=== PATIENT | male | born 1990 | race Caucasian/White ===

== ENCOUNTER 2023-12-18 07:17 | Emergency (ER) | payer OTHER ==
[2023-12-18] MEDS: SODIUM CHLORIDE 0.9% 1,000 ML IV ONE (08:31)
[2023-12-18] MEDS: SODIUM CHLORIDE 0.9% 500 ML 500 ML IV ONE (08:32)
[2023-12-18] MEDS: METOCLOPRAMIDE 5 MG/ML 2 ML VIAL IVP STA ×2 (08:33)
--- NOTE | 2023-12-18 08:42 | ED ---
General Adult HPI - General Chief complaint: Nausea/Vomiting/Diarrhea Stated complaint: Detox Time Seen by Provider: 12/18/23 07:35 Source: patient, EMS, RN notes reviewed, old records reviewed Mode of arrival: EMS Limitations: no limitations - History of Present Illness Initial comments: This is a 33-year-old male who presents to the emergency department from [facility]. Patient came in yesterday for fentanyl abuse. Patient was started on methadone. Patient states last night he started vomiting and has been unable to stop vomiting since so they sent him to the emergency department. Patient states he has some abdominal cramping but no severe point tenderness. Patient [place] any fever or chills. Patient has any diarrhea. Patient denies chest pain or shortness of breath. Patient's only complaint is that he cannot stop vomiting. - Related Data Home Medications Medication Instructions Recorded Confirmed Melatonin 10 mg PO HS 12/18/23 12/18/23 Methadone HCl 90 mg PO DAILY 12/18/23 12/18/23 Zofran 2ml(4mg) 4 mg IM Q6H PRN 12/18/23 12/18/23 cloNIDine HCL [Catapres] 0.1 mg PO Q4H PRN 12/18/23 12/18/23 ondansetron HCL [Ondansetron HCl] 8 mg PO Q6H PRN 12/18/23 12/18/23 traZODone HCL [Desyrel] 50 - 150 mg PO HS PRN 12/18/23 12/18/23 Allergies Allergy/AdvReac Type Severity Reaction Status Date / Time cephalexin [From Keflex] AdvReac Rash/Hives Verified 12/18/23 09:38 Review of Systems ROS Statement: Those systems with pertinent positive or pertinent negative responses have been documented in the HPI. ROS Other: All systems not noted in ROS Statement are negative. Past Medical History Past Medical History: No Reported History Past Surgical History: Appendectomy, Hernia Repair Smoking Status: Current every day smoker Past Alcohol Use History: None Reported Past Drug Use History: IV Drug Use General Exam - General Exam Comments Initial Comments: GENERAL: Patient is well-developed and well-nourished. Patient is nontoxic and well- hydrated and is in mild distress. ENT: Neck is soft and supple. No significant lymphadenopathy is noted. Oropharynx is clear. Moist mucous membranes. Neck has full range of motion without eliciting any pain. EYES: The sclera were anicteric and conjunctiva were pink and moist. Extraocular movements were intact and pupils were equal round and reactive to light. Eyelids were unremarkable. PULMONARY: Unlabored respirations. Good breath sounds bilaterally. No audible rales rhonchi or wheezing was noted. CARDIOVASCULAR: There is a regular rate and rhythm without any murmurs gallops or rubs. ABDOMEN: Soft and nontender with normal bowel sounds. No palpable organomegaly was noted. There is no palpable pulsatile mass. SKIN: Skin is clear with no lesions or rashes and otherwise unremarkable. NEUROLOGIC: Patient is alert and oriented x3. Cranial nerves II through XII are grossly intact. Motor and sensory are also intact. Normal speech, volume and content. Symmetrical smile. MUSCULOSKELETAL: Normal extremities with adequate strength and full range of motion. No lower extremity swelling or edema. No calf tenderness. LYMPHATICS: No significant lymphadenopathy is noted PSYCHIATRIC: Normal psychiatric evaluation. Limitations: no limitations Course Vital Signs 12/18/23 12/18/23 07:19 09:52 Temperature 99.3 F Pulse Rate 64 81 Respiratory 18 16 Rate Blood Pressure 138/83 122/61 O2 Sat by Pulse 99 99 Oximetry Medical Decision Making - Medical Decision Making EKG is interpreted by myself but EKG shows a sinus rhythm at 68 bpm parable 158 QRS is 100 QT interval is 428 QTc is 445. Patient's EKG shows no ST segment ovation or depression Was pt. sent in by a medical professional or institution ([facility], [facility], urgent care, hospital, or assisted...) When possible be specific @ -Patient was sent to us by [facility] Did you speak to anyone other than the patient for history (EMS, parent, family, police, friend...)? What history was obtained from this source @ -No Did you review nursing and triage notes (agree or disagree)? Why? @ -I reviewed and agree with nursing and triage notes Were old charts reviewed (outside hosp., previous admission, EMS record, old EKG, old radiological studies, urgent care reports/EKG's, assisted records)? Report findings @ -No old charts were reviewed Differential Diagnosis (chest pain, altered mental status, abdominal pain women, abdominal pain men, vaginal bleeding, weakness, fever, dyspnea, syncope, headache, dizziness, GI bleed, back pain, seizure, CVA, palpatations, mental health, musculoskeletal)? @ -Gastroenteritis, acute vomiting viral, narcotics withdrawal, this is not an all-inclusive list EKG interpreted by me (3pts min.). @ -As above X-rays interpreted by me (1pt min.). @ -None done CT interpreted by me (1pt min.). @ -None done U/S interpreted by me (1pt. min.). @ -None done What testing was considered but not performed or refused? (CT, X-rays, U/S, labs)? Why? @ -None What meds were considered but not given or refused? Why? @ -None Did you discuss the management of the patient with other professionals (professionals i.e. , PA, [facility] [facility], lab, RT, psych nurse, social insurance specialist, office machines sales representative, teacher, parole or probation officer, manager of case management)? Give summary @ -No Was smoking cessation discussed for >3mins.? @ -No Was critical care preformed (if so, how long)? @ -No Were there social determinants of health that impacted care today? How? (Homelessness, low income, unemployed, alcoholism, drug addiction, transportation, low edu. Level, literacy, decrease access to med. care, shelter, rehab)? @ -No Was there de-escalation of care discussed even if they declined (Discuss DNR or withdrawal of care, Hospice)? DNR status @ -No What co-morbidities impacted this encounter? (DM, HTN, Smoking, COPD, CAD, Cancer, CVA, ARF, Chemo, Hep., AIDS, mental health diagnosis, sleep apnea, morbid obesity)? @ -None Was patient admitted / discharged? Hospital course, mention meds given and route, prescriptions, significant lab abnormalities, going to OR and other pertinent info. @ -Patient was in the emergency department given Zofran and Reglan initially it decrease the nausea little but the patient did eventually continue to vomit the patient was given droperidol and he felt considerably better he was given a liter half of fluid and at this point time he had no abdominal pain no nausea and he was sleeping comfortably. I will transfer the patient back to [facility] patient is in agreement with this. Patient was also given methadone because it was due at the rehabilitation center at 9:00. Undiagnosed new problem with uncertain prognosis? @ -No Drug Therapy requiring intensive monitoring for toxicity (Heparin, Nitro, Insulin, Cardizem)? @ -No Were any procedures done? @ -No Diagnosis/symptom? @ -Narcotics withdrawal Acute, or Chronic, or Acute on Chronic? @ -Acute Uncomplicated (without systemic symptoms) or Complicated (systemic symptoms)? @ -Complicated Side effects of treatment? @ -No Exacerbation, Progression, or Severe Exacerbation? @ -No Poses a threat to life or bodily function? How? (Chest pain, [place], [place], pneumonia, PE, COPD, DKA, ARF, appy, cholecystitis, CVA, Diverticulitis, Homicidal, Suicidal, threat to staff... and all critical care pts) @ -No - Lab Data Result diagrams: 12/18/23 14:18 12/18/23 08:36 Lab Results 12/18/23 12/18/23 12/18/23 Range/Units 08:36 08:36 14:18 WBC 22.0 H 17.2 H (3.8-10.6) k/uL RBC 5.18 5.05 (4.30-5.90) m/uL Hgb 14.4 14.1 (13.0-17.5) gm/dL Hct 43.2 42.0 (39.0-53.0) % MCV 83.4 83.2 (80.0-100.0) fL MCH 27.8 27.9 (25.0-35.0) pg MCHC 33.4 33.5 (31.0-37.0) g/dL RDW 12.6 12.5 (11.5-15.5) % Plt Count 192 190 (150-450) k/uL MPV 9.1 9.2 Neutrophils % 90 90 % Lymphocytes % 5 6 % Monocytes % 5 3 % Eosinophils % 0 1 % Basophils % 0 0 % Neutrophils # 19.7 H 15.5 H (1.3-7.7) k/uL Lymphocytes # 1.0 1.0 (1.0-4.8) k/uL Monocytes # 1.1 H 0.6 (0-1.0) k/uL Eosinophils # 0.0 0.1 (0-0.7) k/uL Basophils # 0.0 0.0 (0-0.2) k/uL Sodium 142 (137-145) mmol/L Potassium 3.7 (3.5-5.1) mmol/L Chloride 105 (98-107) mmol/L Carbon Dioxide 28 (22-30) mmol/L Anion Gap 9 mmol/L BUN 9 (9-20) mg/dL Creatinine 0.85 (0.66-1.25) mg/dL Est GFR (CKD-EPI)AfAm >90 (>60 ml/min/1.73 sqM) Est GFR (CKD-EPI)NonAf >90 (>60 ml/min/1.73 sqM) Glucose 138 H (74-99) mg/dL Calcium 10.0 (8.4-10.2) mg/dL Magnesium 1.7 (1.6-2.3) mg/dL Total Bilirubin 0.8 (0.2-1.3) mg/dL AST 36 (17-59) U/L ALT 28 (4-49) U/L Alkaline Phosphatase 85 (38-126) U/L Total Protein 8.1 (6.3-8.2) g/dL Albumin 4.9 (3.5-5.0) g/dL Disposition Clinical Impression: Narcotic withdrawal Disposition: HOME SELF-CARE Instructions (If sedation given, give patient instructions): Acute Nausea and Vomiting (ED), Opioid Withdrawal (ED) Is patient prescribed a controlled substance at d/c from ED?: No Referrals: None,Stated [Primary Care Provider] - 1-2 days Time of Disposition: 14:42
[2023-12-18 08:45] LABS: Basophils % (A) 0 %; Eosinophils % (A) 0 %; HCT 43.2 % (39.0-53.0); HGB 14.4 gm/dL (13.0-17.5); Lymphocytes % (A) 5 %; MCH 27.8 pg (25.0-35.0); MCHC 33.4 g/dL (31.0-37.0); MCV 83.4 fL (80.0-100.0); Mean Platelet Volume 9.1; Monocytes # (A) 1.1 k/uL (0-1.0); Monocytes % (A) 5 %; Neutrophils # (A) 19.7 k/uL (1.3-7.7); Neutrophils % (A) 90 %; Platelet Count 192 k/uL (150-450); RBC 5.18 m/uL (4.30-5.90); RDW 12.6 % (11.5-15.5)
[2023-12-18 08:56] LABS: ALT 28 U/L (4-49); AST 36 U/L (17-59); African American GFR (CKD) >90 (>60 ml/min/1.73 sqM); Albumin 4.9 g/dL (3.5-5.0); Alkaline Phosphatase 85 U/L (38-126); Anion Gap 9 mmol/L; Blood Urea Nitrogen 9 mg/dL (9-20); Carbon Dioxide 28 mmol/L (22-30); Chloride 105 mmol/L (98-107); Glucose 138 mg/dL (74-99); Magnesium 1.7 mg/dL (1.6-2.3); Non-African American GFR(CKD) >90 (>60 ml/min/1.73 sqM); Potassium 3.7 mmol/L (3.5-5.1); Sodium 142 mmol/L (137-145); Total Bilirubin 0.8 mg/dL (0.2-1.3); Total Protein 8.1 g/dL (6.3-8.2)
[2023-12-18] MEDS: ONDANSETRON 4 MG/2 ML VIAL IM STA (09:57)
[2023-12-18] MEDS: ONDANSETRON 4 MG/2 ML VIAL IVP STA (10:03)
[2023-12-18] MEDS: droPERidol 5 MG/2 ML VIAL IM ONE (11:47)
[2023-12-18] MEDS ORDERED: METHADONE 5 MG TAB PO STA (11:51)
[2023-12-18] MEDS ORDERED: HEPARIN SOD,PORK IN 0.45% NACL 25,000 UNIT in 0.45% NACL 1 250ML.BAG IV SCH (12:00)
[2023-12-18] MEDS: DILTIAZEM 125 MG in SODIUM CHLORIDE 0.9% 100 ML IV SCH (12:02)
[2023-12-18] MEDS: HEPARIN SODIUM 1,000 UN/ML (10ML VL) IV ONE (12:03)
[2023-12-18] MEDS: DILTIAZEM DRIP BOLUS FROM BAG 1 MG SOLN IV ONE (12:03)
[2023-12-18] MEDS: METHADONE 10 MG TAB PO STA (12:39)
[2023-12-18 14:24] LABS: Basophils % (A) 0 %; Eosinophils # (A) 0.1 k/uL (0-0.7); Eosinophils % (A) 1 %; HGB 14.1 gm/dL (13.0-17.5); Lymphocytes % (A) 6 %; MCH 27.9 pg (25.0-35.0); MCHC 33.5 g/dL (31.0-37.0); MCV 83.2 fL (80.0-100.0); Mean Platelet Volume 9.2; Monocytes # (A) 0.6 k/uL (0-1.0); Monocytes % (A) 3 %; Neutrophils # (A) 15.5 k/uL (1.3-7.7); Neutrophils % (A) 90 %; Platelet Count 190 k/uL (150-450); RBC 5.05 m/uL (4.30-5.90); RDW 12.5 % (11.5-15.5); WBC 17.2 k/uL (3.8-10.6)
[2023-12-18 15:12] VITALS: BP 124/79; RESP 18
[2023-12-18 15:55] VITALS: PULSE 78; TEMP 99.2
== END 2023-12-18 15:35 | disposition home or self-care (01) ==
LOC: EC 07:17
DX: F11.23 Opioid dependence with withdrawal (principal); F17.200 Nicotine dependence, unspecified, uncomplicated; Z88.1 Allergy status to other antibiotic agents
CPT/HCPCS: 36415; 93005; 80053; 83735; 85025; 99284; 96374; 96361; 96372 ×2; J2765; J2405; S0109; J1790